=== PATIENT | male | born 1970 | race Two or more races ===

== ENCOUNTER 2024-04-16 19:41 | Emergency (ER) | payer OTHER ==
[~2024-04-16] VITALS: Ht 160 cm; Wt 108.2 kg
[2024-04-16 19:47] VITALS: BP 120/75; PULSE 111; RESP 20; TEMP 100
[2024-04-16 20:45] LABS: COVID AG,FIA SOURCE NASAL SWAB
[2024-04-16 21:15] LABS: SARS-COV2 (COVID) ANTIGEN,FIA Negative (Negative)
[2024-04-16 21:16] LABS: INFLUENZA TYPE A NEGATIVE FOR TYPE A (NEGATIVE); INFLUENZA TYPE B NEGATIVE FOR TYPE B (NEGATIVE)
== END 2024-04-17 01:23 | disposition left against medical advice (07) ==
LOC: EMS 19:41
DX: R50.9 Fever, unspecified (principal); R05.9 Cough, unspecified; R51.9 Headache, unspecified; Z20.822 Contact with and (suspected) exposure to COVID-19; Z53.21 Procedure and treatment not carried out due to patient leaving prior to being seen by health care provider
CPT/HCPCS: 82962; 87804

== ENCOUNTER 2024-04-20 04:13 | Emergency (ER) | payer OTHER ==
[~2024-04-20] VITALS: Ht 165.1 cm; Wt 106.4 kg
[2024-04-20 04:26] VITALS: TEMP 99.3
[2024-04-20 05:04] LABS: COVID AG,FIA SOURCE NASAL SWAB
[2024-04-20 05:08] LABS: BASOPHILS % (AUTO) 0.5 % (0.0-2.0); EOSINOPHILS % (AUTO) 3.3 % (1.0-6.0); HEMATOCRIT 42.7 % (41-53); HEMOGLOBIN 14.6 g/dL (13.5-17.5); LYMPHOCYTES # (AUTO) 2.9 K/uL (1.0-4.8); MEAN CORPUSCULAR HEMOGLOBIN 33.1 pg (26.0-34.0); MEAN CORPUSCULAR HGB CONC 34.2 G/dL (31.0-37.0); MEAN CORPUSCULAR VOLUME 97 fL (80-100); NEUTROPHILS # (AUTO) 5.4 K/uL (1.8-7.7); NEUTROPHILS % (AUTO) 56.2 % (40.0-70.0); PLATELET COUNT (AUTO) 299 K/uL (150-450); RED BLOOD CELL COUNT(AUTO) 4.41 MIL/uL (4.50-5.90); WHITE BLOOD COUNT (AUTO) 9.6 K/uL (4.5-11.0)
[2024-04-20 05:14] LABS: ANION GAP 10 mmol/L (8-16); CARBON DIOXIDE 23 mmol/L (22-29); CHLORIDE 102 mmol/L (98-107); CREATININE 0.82 mg/dL (0.60-1.30); GLOMERULAR FILTR. RATE CALC > 60 mL/min (>60); GLUCOSE,RANDOM 113 mg/dL (70-110); SODIUM SERUM 135 mmol/L (136-145); UREA NITROGEN, BLOOD 13 mg/dL (7-18)
[2024-04-20 05:15] LABS: INFLUENZA TYPE A NEGATIVE FOR TYPE A (NEGATIVE); INFLUENZA TYPE B NEGATIVE FOR TYPE B (NEGATIVE)
[2024-04-20 05:18] LABS: SARS-COV2 (COVID) ANTIGEN,FIA Negative (Negative)
[2024-04-20] MEDS ORDERED: IOHEXOL 350 MG/ML 100 ML VIAL ONE (07:44)
[2024-04-20] MEDS ORDERED: SODIUM CHLORIDE 0.9% 100 ML ONE (07:44)
[2024-04-20 08:10] LABS: THYROID STIMULATING HORMONE 5.48 uIU/mL (0.36-3.74)
[2024-04-20 11:15] VITALS: BP 120/75; PULSE 85; RESP 16; O2SAT 96
[2024-04-20] MEDS: IBUPROFEN 600 MG TABLET PO ONE (11:16)
== END 2024-04-20 11:45 | disposition home or self-care (01) ==
LOC: EMS 04:13
DX: R59.0 Localized enlarged lymph nodes (principal); E11.9 Type 2 diabetes mellitus without complications; Z20.822 Contact with and (suspected) exposure to COVID-19
CPT/HCPCS: 99285; 70491; 87426; 80048; 84443; 85025; 87804; 36415; Q9967; J7050

== ENCOUNTER 2024-07-10 02:38 | Emergency (ER) | payer OTHER ==
[~2024-07-10] VITALS: Ht 165.1 cm; Wt 100.0 kg
[2024-07-10 02:58] VITALS: TEMP 98.4
[2024-07-10] MEDS ORDERED: insulin SQ (03:14)
[2024-07-10] MEDS ORDERED: METF-81 PO (03:14)
[2024-07-10 03:56] LABS: BASOPHILS % (AUTO) 0.7 % (0.0-2.0); EOSINOPHILS % (AUTO) 3.3 % (1.0-6.0); HEMATOCRIT 42.1 % (41-53); HEMOGLOBIN 14.3 g/dL (13.5-17.5); LYMPHOCYTES # (AUTO) 2.7 K/uL (1.0-4.8); LYMPHOCYTES % (AUTO) 32.9 % (22.0-44.0); MEAN CORPUSCULAR HEMOGLOBIN 32.7 pg (26.0-34.0); MEAN CORPUSCULAR VOLUME 96 fL (80-100); MONOCYTES # (AUTO) 0.7 K/uL (0.1-1.0); MONOCYTES % (AUTO) 8.9 % (2.0-9.0); NEUTROPHILS # (AUTO) 4.5 K/uL (1.8-7.7); NEUTROPHILS % (AUTO) 54.2 % (40.0-70.0); PLATELET COUNT (AUTO) 229 K/uL (150-450); RED BLOOD CELL COUNT(AUTO) 4.37 MIL/uL (4.50-5.90); RED CELL DISTRIBUTION WIDTH 13.9 % (11.5-14.5); WHITE BLOOD COUNT (AUTO) 8.2 K/uL (4.5-11.0)
[2024-07-10 03:59] LABS: ANION GAP 8 mmol/L (8-16); CALCIUM, TOTAL 8.4 mg/dL (8.8-10.5); CARBON DIOXIDE 26 mmol/L (22-29); CHLORIDE 106 mmol/L (98-107); CREATININE 0.71 mg/dL (0.60-1.30); GLOMERULAR FILTR. RATE CALC > 60 mL/min (>60); GLUCOSE,RANDOM 112 mg/dL (70-110); POTASSIUM 3.9 mmol/L (3.5-5.1); SODIUM SERUM 140 mmol/L (136-145); UREA NITROGEN, BLOOD 17 mg/dL (7-18)
[2024-07-10 04:05] LABS: ALBUMIN 3.4 g/dL (3.4-5.0); BILIRUBIN,DIRECT 0.1 mg/dL (0.00-0.20); BILIRUBIN,TOTAL 0.2 mg/dL (0.1-1.0); TOTAL PROTEIN, SERUM 6.7 g/dL (6.4-8.2)
[2024-07-10] MEDS ORDERED: SODIUM CHLORIDE 0.9% 100 ML ONE (04:14)
[2024-07-10] MEDS ORDERED: IOHEXOL 350 MG/ML 100 ML VIAL ONE (04:15)
[2024-07-10 06:27] VITALS: BP 104/67; PULSE 68; RESP 22; O2SAT 97
[2024-07-10 07:31] LABS: GLUCOMETER DEV NAME(LOC) ER.7; GLUCOSE,POINT OF CARE 95 MG/DL (70-110)
== END 2024-07-10 06:30 | disposition home or self-care (01) ==
LOC: EMS 02:38
DX: R07.0 Pain in throat (principal); E11.9 Type 2 diabetes mellitus without complications; M54.2 Cervicalgia; Z79.4 Long term (current) use of insulin; Z79.84 Long term (current) use of oral hypoglycemic drugs
CPT/HCPCS: 99285; 70491; 80048; 80076; 82962; 85025; 86308; 36415; Q9967; J7050

== ENCOUNTER 2024-11-27 09:02 | Emergency (ER) | payer OTHER ==
[~2024-11-27] VITALS: Ht 165.1 cm; Wt 113.6 kg
[~2024-11-27 09:02] MED LIST: METF-81 PO; insulin SQ
[2024-11-27 09:06] VITALS: BP 129/83; PULSE 75; RESP 18; TEMP 98.5; O2SAT 97
[2024-11-27] MEDS ORDERED: DULA3PEN SQ (09:07)
[2024-11-27] MEDS ORDERED: ATOR40TA71 PO (09:07)
[2024-11-27] MEDS ORDERED: METF-446 PO (09:07)
[2024-11-27 09:28] LABS: BASOPHILS % (AUTO) 0.5 % (0.0-2.0); EOSINOPHILS % (AUTO) 3.1 % (1.0-6.0); HEMATOCRIT 46.1 % (41-53); HEMOGLOBIN 15.5 g/dL (13.5-17.5); LYMPHOCYTES # (AUTO) 2.6 K/uL (1.0-4.8); LYMPHOCYTES % (AUTO) 34.3 % (22.0-44.0); MEAN CORPUSCULAR HEMOGLOBIN 32.6 pg (26.0-34.0); MEAN CORPUSCULAR HGB CONC 33.6 G/dL (31.0-37.0); MEAN CORPUSCULAR VOLUME 97 fL (80-100); MONOCYTES # (AUTO) 0.5 K/uL (0.1-1.0); MONOCYTES % (AUTO) 7.1 % (2.0-9.0); NEUTROPHILS # (AUTO) 4.2 K/uL (1.8-7.7); PLATELET COUNT (AUTO) 215 K/uL (150-450); RED BLOOD CELL COUNT(AUTO) 4.76 MIL/uL (4.50-5.90); RED CELL DISTRIBUTION WIDTH 13.7 % (11.5-14.5); WHITE BLOOD COUNT (AUTO) 7.6 K/uL (4.5-11.0)
[2024-11-27 09:30] LABS: GLUCOMETER DEV NAME(LOC) ERT.6; GLUCOSE,POINT OF CARE 106 MG/DL (70-110)
[2024-11-27 09:39] LABS: ANION GAP 7 mmol/L (8-16); CALCIUM, TOTAL 8.7 mg/dL (8.8-10.5); CARBON DIOXIDE 25 mmol/L (22-29); CHLORIDE 106 mmol/L (98-107); CREATININE 0.69 mg/dL (0.60-1.30); GLOMERULAR FILTR. RATE CALC > 60 mL/min (>60); GLUCOSE,RANDOM 97 mg/dL (70-110); SODIUM SERUM 138 mmol/L (136-145); UREA NITROGEN, BLOOD 10 mg/dL (7-18)
[2024-11-27 09:40] LABS: GLUCOMETER DEV NAME(LOC) ER.7; GLUCOSE,POINT OF CARE 99 MG/DL (70-110)
[2024-11-27 09:49] LABS: TROPONIN I-HIGH SENSITIVITY 4 ng/L (<76)
[2024-11-27] MEDS: KETOROLAC TROMETHAMINE 60 MG/2 ML VIAL IM ONE (10:06)
== END 2024-11-27 11:11 | disposition home or self-care (01) ==
LOC: EMS 09:04
DX: R07.89 Other chest pain (principal); M79.602 Pain in left arm; E11.9 Type 2 diabetes mellitus without complications; Z79.84 Long term (current) use of oral hypoglycemic drugs; Z79.899 Other long term (current) drug therapy
CPT/HCPCS: 99285; 71045; 80048; 82962; 84484; 85025; 36415; 93005; 96372; J1885